=== PATIENT | female | born 1940 | race Caucasian/White ===

== ENCOUNTER 2017-06-11 17:39 | Inpatient (IN) | payer OTHER ==
[~2017-06-11] VITALS: Ht 167.6 cm; Wt 68.6 kg
[2017-06-11] MEDS ORDERED: ONDANSETRON HCL 4 MG/2 ML VIAL IV ONE (19:00)
[2017-06-11] MEDS ORDERED: NALBUPHINE HCL 10 MG/1ml INJECTION IV ONE (19:00)
[2017-06-11 19:21] LABS: Basophils # (auto) 0.2 uL; Basophils % (auto) 0.9 % (0.0-2.0); Eosinophils # (auto) 0 uL; Eosinophils % (auto) 0.1 % (0.0-7.0); Hematocrit 40.7 % (36.0-46.0); Hemoglobin 13.5 g/dL (12.2-16.2); Lymphocytes % (auto) 4.9 % (10.0-50.0); Mean Corpuscular Hemoglobin 29.1 pg (28.0-32.0); Mean Corpuscular Hgb Conc. 33.2 g/dL (32.0-36.0); Mean Corpuscular Volume 87.5 fL (80.0-100.0); Monocytes # (auto) 1.1 uL; Monocytes % (auto) 4.9 % (0.0-12.0); Neutrophils # (auto) 18.9 uL; Neutrophils % (auto) 89.2 % (37.0-80.0); Platelet Count (auto) 395 10^3/uL (140-450); Red Blood Cells 4.66 10^6/uL (4.0-5.20); Red Cell Distribution Width 14.4 % (11.8-14.3); White Blood Cell 21.2 10^3/uL (4.4-10.8)
[2017-06-11] MEDS ORDERED: SODIUM CHLORIDE 0.9% 1,000 ML IV ONE (19:30)
[2017-06-11] MEDS ORDERED: cefTRIAXone 1GM/10ml IVPUSH 10 ML IV ONE (19:30)
[2017-06-11 19:44] LABS: Albumin 3.2 g/dL (3.4-5.0); BUN/Creatinine Ratio 28.1; Bilirubin, Total 0.6 mg/dL (0.2-1.0); Calcium 9.4 mg/dL (8.5-10.1); Magnesium 2.6 mg/dL (1.6-2.6); Potassium 3.4 mmol/L (3.5-5.1)
[2017-06-11 19:52] LABS: INR 0.95 (0.9-1.15); Partial Thromboplastin Time 27.9 sec (22.64-33.71); Prothrombin Time 10.3 sec (9.37-12.3)
[2017-06-11] MEDS ORDERED: POTASSIUM CHL 20 Meq TABLET PO ONE (20:15)
[2017-06-11] MEDS ORDERED: IOHEXOL 350 MG/ML 100ML IJ ONE (21:00)
[2017-06-12] MEDS ORDERED: ONDANSETRON HCL 4 MG/2 ML VIAL IV ONE (00:30)
[2017-06-12] MEDS ORDERED: HYDROmorphone HCL 2 MG/ML VL IV ONE (00:30)
[2017-06-12] MEDS ORDERED: MORPHINE SULFATE 4 MG/ML SYR/VIAL IV ONE (00:45)
[2017-06-12 02:30] LABS: Urine Bacteria NONE SEEN /hpf (None Seen); Urine Blood Negative /uL (Negative); Urine Hyaline Cast FEW /lpf (0 - 2); Urine Mucus FEW (None Seen); Urine WBC <1 /hpf (0 - 5)
[2017-06-12 02:31] LABS: Urine Specific Gravity > 1.050 (1.001-1.035)
[2017-06-12] MEDS ORDERED: ONDANSETRON HCL 4 MG/2 ML VIAL IV PRN (03:30)
[2017-06-12] MEDS ORDERED: ACETAMINOPHEN 500 MG TAB PO PRN (03:30)
[2017-06-12] MEDS ORDERED: ZOLPIDEM TARTRATE 5 MG TAB PO PRN (03:30)
[2017-06-12] MEDS ORDERED: LORazepam 0.5 MG TAB PO PRN (03:30)
[2017-06-12 05:25] LABS: Basophils # (auto) 0 uL; Basophils % (auto) 0.2 % (0.0-2.0); Eosinophils # (auto) 0 uL; Hematocrit 38.9 % (36.0-46.0); Hemoglobin 12.8 g/dL (12.2-16.2); Lymphocytes # (auto) 1.1 uL; Lymphocytes % (auto) 9.4 % (10.0-50.0); Mean Corpuscular Hemoglobin 28.8 pg (28.0-32.0); Mean Corpuscular Hgb Conc. 32.9 g/dL (32.0-36.0); Mean Corpuscular Volume 87.7 fL (80.0-100.0); Monocytes % (auto) 8.1 % (0.0-12.0); Neutrophils # (auto) 9.9 uL; Neutrophils % (auto) 82.3 % (37.0-80.0); Nucleated Red Blood Cells % 0.1 %; Platelet Count (auto) 361 10^3/uL (140-450); Red Blood Cells 4.44 10^6/uL (4.0-5.20); Red Cell Distribution Width 14.1 % (11.8-14.3)
[2017-06-12 05:37] LABS: BUN/Creatinine Ratio 32.4; Calcium 9.5 mg/dL (8.5-10.1); Potassium 4.3 mmol/L (3.5-5.1)
[2017-06-12 05:46] VITALS: BP 149/75
[2017-06-12 05:50] VITALS: BP 149/75
[2017-06-12] MEDS: PIPERACILLIN-TAZOB 3.375GM 50 ML IV SCH ×2 (06:45→12:53)
[2017-06-12] MEDS: HYDROcodone-ACET 5/325MG TAB PO PRN ×3 (07:46→22:27)
[2017-06-12 09:00] VITALS: BP 123/72
[2017-06-12] MEDS ORDERED: cloNIDine HCL 0.1 MG TAB PO SCH (10:00)
[2017-06-12] MEDS: ENOXAPARIN SOD 40 MG/0.4 ML SYRINGE SC SCH (10:30)
[2017-06-12 13:00] VITALS: BP 135/69
[2017-06-12] MEDS: ASPirin 81 mg TAB PO SCH (15:11)
[2017-06-12] MEDS: ATORVASTATIN 20 MG TAB PO SCH ×2 (15:12→21:20)
[2017-06-12] MEDS: METOPROLOL TARTRATE 25 MG TAB PO SCH ×2 (15:12→21:21)
[2017-06-12] MEDS: MORPHINE SULFATE 4 MG/ML SYR/VIAL IV PRN ×2 (15:12→20:15)
[2017-06-12 17:00] VITALS: BP 106/65
[2017-06-12 22:15] VITALS: BP 126/73
[2017-06-13 05:00] VITALS: BP 130/72
[2017-06-13] MEDS: METOPROLOL TARTRATE 25 MG TAB PO SCH ×2 (05:54→14:00)
[2017-06-13 06:39] LABS: Basophils # (auto) 0.1 uL; Basophils % (auto) 0.5 % (0.0-2.0); Eosinophils # (auto) 0 uL; Eosinophils % (auto) 0.1 % (0.0-7.0); Hemoglobin 10.7 g/dL (12.2-16.2); Lymphocytes # (auto) 1.6 uL; Lymphocytes % (auto) 10.8 % (10.0-50.0); Mean Corpuscular Hgb Conc. 32.3 g/dL (32.0-36.0); Mean Corpuscular Volume 89.8 fL (80.0-100.0); Monocytes # (auto) 1.4 uL; Monocytes % (auto) 9.4 % (0.0-12.0); Neutrophils # (auto) 11.9 uL; Neutrophils % (auto) 79.2 % (37.0-80.0); Platelet Count (auto) 321 10^3/uL (140-450); Red Blood Cells 3.68 10^6/uL (4.0-5.20); Red Cell Distribution Width 14.3 % (11.8-14.3)
[2017-06-13 06:52] LABS: BUN/Creatinine Ratio 45.5; Calcium 9.1 mg/dL (8.5-10.1); Potassium 4.1 mmol/L (3.5-5.1)
[2017-06-13 09:00] VITALS: BP 127/71
[2017-06-13] MEDS: ASPirin 81 mg TAB PO SCH (10:00)
[2017-06-13] MEDS: ENOXAPARIN SOD 40 MG/0.4 ML SYRINGE SC SCH (10:11)
[2017-06-13 13:00] VITALS: BP 138/72
[2017-06-13] MEDS ORDERED: MET25T PO (13:34)
[2017-06-13] MEDS ORDERED: APIX5TAB PO (13:34)
[2017-06-13] MEDS ORDERED: ATOR20TA50 PO (13:34)
[2017-06-13 17:00] VITALS: BP 143/73
== END 2017-06-13 19:49 | disposition hospice, home (50) | DRG 543 ==
LOC: ER 17:39 → TELE 17:40 → TELE-CENTR 06-12 05:25
PROVIDERS: ADMIT Nurse Practitioner Family; ATTEND Internal Medicine
DX: M84.652A Pathological fracture in other disease, left femur, initial encounter for fracture (principal); E44.1 Mild protein-calorie malnutrition; I74.5 Embolism and thrombosis of iliac artery; D68.69 Other thrombophilia; E27.8 Other specified disorders of adrenal gland; I48.91 Unspecified atrial fibrillation; F03.90 Unspecified dementia, unspecified severity, without behavioral disturbance, psychotic disturbance, mood disturbance, and anxiety; I70.0 Atherosclerosis of aorta; Z51.5 Encounter for palliative care; K57.30 Diverticulosis of large intestine without perforation or abscess without bleeding; I71.4 Abdominal aortic aneurysm, without rupture; F41.9 Anxiety disorder, unspecified; G47.00 Insomnia, unspecified; I11.9 Hypertensive heart disease without heart failure; I73.9 Peripheral vascular disease, unspecified; R91.8 Other nonspecific abnormal finding of lung field; M16.11 Unilateral primary osteoarthritis, right hip; K44.9 Diaphragmatic hernia without obstruction or gangrene; I77.1 Stricture of artery; K80.20 Calculus of gallbladder without cholecystitis without obstruction; M85.80 Other specified disorders of bone density and structure, unspecified site; M16.12 Unilateral primary osteoarthritis, left hip; Z68.24 Body mass index [BMI] 24.0-24.9, adult; Z79.82 Long term (current) use of aspirin; Z79.899 Other long term (current) drug therapy; Z82.49 Family history of ischemic heart disease and other diseases of the circulatory system
CPT/HCPCS: 36415; 71045; 71260; 72192; 74177; 80048; 80053; 81001; 82150; 83605; 83690; 83735; 83880; 84484; 85025; 85379; 85610; 85730; 87040; 87086; 93005; 93306; 94761; 96361; 96374; 96375; 96376; J2405; J2543